=== PATIENT | female | born 1990 | race American Indian/Alaskan Native ===

== ENCOUNTER 2018-12-31 20:13 | Inpatient (IN) | payer MEDICAID ==
[2018-12-31] MEDS ORDERED: LACTATED RINGERS 1,000 ML IV SCH (23:45)
[2018-12-31 23:49] LABS: Hematocrit 36.1 % (30.3-42.9); Hemoglobin 11.8 gm/dl (10.1-14.3); Mean Corpuscular HGB Conc 33 % (30-34); Mean Corpuscular Volume 85 fl (79-97); Platelet Count 358 K/mm3 (140-440); Red Blood Count 4.23 M/mm3 (3.65-5.03)
[2018-12-31 23:51] LABS: Red Cell Distribution Width 21.4 % (13.2-15.2)
[2019-01-01] MEDS ORDERED: NUBAIN IV PRN (01:11)
[2019-01-01] MEDS ORDERED: CERVIDIL VG ONE (01:11)
[2019-01-01] MEDS ORDERED: SUBLIMAZE IV PRN (01:11)
[2019-01-01] MEDS ORDERED: MINERAL OIL PO PRN (01:11)
[2019-01-01] MEDS ORDERED: STADOL IV PRN (01:11)
[2019-01-01] MEDS ORDERED: NARCAN 0.4 MG/1 ML IV PRN (01:11)
[2019-01-01] MEDS ORDERED: XYLOCAINE 2% INFILTRATI ONE (01:11)
[2019-01-01] MEDS ORDERED: PHENERGAN PO PRN (01:11)
[2019-01-01] MEDS ORDERED: BRETHINE IVP PRN (01:11)
[2019-01-01] MEDS ORDERED: ZOFRAN IV PRN (01:11)
[2019-01-01] MEDS ORDERED: BRETHINE SUB-Q PRN (01:11)
[2019-01-01] MEDS ORDERED: PITOCin/NS 30 UNIT/500ML 30 UNITS/500 ML BAG IV SCH ×3 (02:00→14:00)
--- NOTE | 2019-01-01 02:29 | History and Physical Report ---
History of Present Illness Date of examination: 01/01/19 Date of admission: 12/31/18 20:13 Chief complaint: Here for my induction History of present illness: The patient is a 28 yo at 39.1 wks EGA. She presents for induction of labor for morbid obesity. She reports positive movement, occasional contractions, and denies leakage of fluid or vaginal bleeding. She denies any current HSV lesions and has taken Valtrex suppression since 35 weeks. She has re ceived care with [facility]. Her course has been complicated by HSV, UTI treated, obesity, glucose intolerance, and thrombocytosis. She is GBS negative. 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 surgery (LEEP) [employer] History: abnormal PAP smear (LSIL), chlamydia, herpes Family/Genetic History: diabetes, hypertension Social history: no significant social history - Obstetrical History Expected Date of Delivery: 01/07/19 Actual Gestation: 39 Week(s) 1 Day(s) : 2 Para: 1 Hx # Term Pregnancies: 1 Number of Pregnancies: 0 Spontaneous Abortions: 0 Induced : 0 Number of Living Children: 1 Medications and Allergies Allergies Allergy/AdvReac Type Severity Reaction Status Date / Time No Known Allergies Allergy Unverified 05/14/18 21:51 Home Medications Medication Instructions Recorded Confirmed Last Taken Type Pnv No.118/Iron Fumarate/FA 1 each PO QDAY #30 tab.chew 05/15/18 Unknown Rx [ 19 Chewable] Active Meds: Active Medications Butorphanol Tartrate (Stadol) 1 mg IV Q2H PRN PRN Reason: Pain, Moderate (4-6) Ephedrine Sulfate (Ephedrine Sulfate) 10 mg IV Q2M PRN PRN Reason: Hypotension Fentanyl (Sublimaze) 100 mcg IV Q2H PRN PRN Reason: Labor Pain Lactated Ringer's (Lactated Ringers) 1,000 mls @ 125 mls/hr IV DIRECT ROMAIN Oxytocin/Sodium Chloride (Pitocin/Ns 20 Unit/1000ml Drip) 20 units in 1,000 mls @ 125 mls/hr IV DIRECT ROMAIN Oxytocin/Sodium Chloride (Pitocin/Ns 30 Unit/500ml) 30 units in 500 mls @ 1 mls/hr IV TITR ROMAIN; Protocol Oxytocin/Sodium Chloride (Pitocin/Ns 30 Unit/500ml) 30 units in 500 mls @ 2 mls/hr IV TITR ROMAIN; Protocol Lactated Ringer's (Lactated Ringers) 1,000 mls @ 125 mls/hr IV DIRECT ROMAIN Mineral Oil (Mineral Oil) 30 ml PO QHS PRN PRN Reason: Constipation Nalbuphine HCl (Nubain) 10 mg IV Q2H PRN PRN Reason: Pain, Moderate (4-6) Naloxone HCl (Narcan 0.4 Mg/1 Ml) 0.1 mg IV Q2MIN PRN PRN Reason: Res Rate </= 8 or 02 SAT < 92% Ondansetron HCl (Zofran) 4 mg IV Q8H PRN PRN Reason: Nausea And Vomiting Promethazine HCl (Phenergan) 25 mg PO Q6H PRN PRN Reason: Nausea And Vomiting Terbutaline Sulfate (Brethine) 0.25 mg SUB-Q ONCE PRN PRN Reason: Hyperstimulation/Hypertonicity Terbutaline Sulfate (Brethine) 0.25 mg IVP ONCE PRN PRN Reason: Hyperstimulation/Hypertonicity Review of Systems ROS unobtainable: due to endotracheal tube All systems: negative Cardiovascular: no chest pain, no shortness of breath Gastrointestinal: no nausea Genitourinary: no vaginal bleeding, no vaginal discharge, no leakage of fluid, no genital sores - Vital Signs Vital signs: Vital Signs Pulse BP 117 H 138/63 12/31/18 20:31 12/31/18 20:31 Temp Pulse Resp BP Pulse Ox 117 H 138/63 12/31/18 20:31 12/31/18 20:31 - Physical Exam Breasts: Positive: deferred Lungs: Positive: Normal air movement Abdomen: Positive: normal appearance (gravid), soft. Negative: distention, tenderness, guarding Uterus: Positive: enlarged (gravid), normal contour Extremities: Positive: normal - Obstetrical FHR: category 1 Uterine Contraction Monitor Mode: External Cervical Dilatation: 0 Cervical Effacement Percentage: 0 station: high Uterine Contraction Pattern: Irregular Results Result Diagrams: 12/31/18 22:00 Abnormal lab results 12/31/18 Range/Units 22:00 RDW 21.4 H (13.2-15.2) % All other labs normal. Assessment and Plan 28 yo at 39.1 wks EGA Morbid obesity- initiate IOL Unfavorable cervix- Cervidil HSV, no active lesions GBS negative Membranes intact Pain relief as requested Anticipate
--- NOTE | 2019-01-01 08:17 | Progress Note ---
Assessment and Plan A/P IUP 39 weeks IOl for morbid obesity GBS neg cervidil and reassess expect vaginal delivery Subjective - Subjective Date of service: 01/01/19 Principal diagnosis: IOL for obesity Patient reports: movement normal, no new complaints, no loss of fluid, no vaginal bleeding, no contractions Objective - Vital Signs Vital Signs: Vital Signs - 12hr 12/31/18 01/01/19 01/01/19 20:31 07:15 07:38 Temperature 98.5 F Pulse Rate 117 H 99 H Blood Pressure 138/63 124/68 - Exam Breasts: normal Cardiovascular: Regular rate, Normal S1 Lungs: Clear to auscultation, Normal air movement Abdomen: Present: normal appearance, soft, normal bowel sounds. Absent: distention, tenderness, guarding Vulva: both: normal Uterus: Present: normal, firm, fundal height above umbilicus. Absent: bogginess, tenderness FHR: category 1 Cervical Dilatation: 0 - Labs Labs: Abnormal Labs 12/31/18 22:00 RDW 21.4 H Laboratory Results - last 24 hr 12/31/18 12/31/18 22:00 22:00 WBC 7.3 RBC 4.23 Hgb 11.8 Hct 36.1 MCV 85 MCH 28 MCHC 33 RDW 21.4 H Plt Count 358 Blood Type O POSITIVE Antibody Screen Negative
[2019-01-01] MEDS ORDERED: NARCAN 2 MG/2 ML IV PRN (19:53)
--- NOTE | 2019-01-01 19:53 | Anesthesia Consultation ---
Anesthesia Consult and Med Hx Date of service: 01/01/19 - Airway Anesthetic Teeth Evaluation: Good ROM Head & Neck: Adequate Mental/Hyoid Distance: Adequate Mallampati Class: Class II Intubation Access Assessment: Probably Good - Pulmonary Exam CTA: Yes - Cardiac Exam Cardiac Exam: RRR - Pre-Operative Health Status ASA Pre-Surgery Classification: ASA2 Proposed Anesthetic Plan: Epidural - Pulmonary Hx Asthma: No COPD: No Hx Pneumonia: No - Cardiovascular System Hx Hypertension: No - Central Nervous System Hx Seizures: No Hx Psychiatric Problems: No - Endocrine Hx Renal Disease: No Hx End Stage Renal Disease: No Hx Hypothyroidism: No Hx Hyperthyroidism: No - Hematic Hx Anemia: Yes (This , receiving iron infusions) Hx Sickle Cell Disease: No
[2019-01-01] MEDS: fentaNYL-BUPIV 2 MCG/ML-0.125% 200 MCG/100 ML BAG EPIDURAL SCH (20:58)
[2019-01-01] MEDS: LACTATED RINGERS 1,000 ML IV SCH (23:08)
[2019-01-02] MEDS: LACTATED RINGERS 1,000 ML IV SCH (06:21)
--- NOTE | 2019-01-02 08:52 | Progress Note ---
Assessment and Plan A/P IUP 39+ weeks IOl for morbid obesity GBS neg cervidil on pitocin expect vaginal delivery Subjective - Subjective Date of service: 01/02/19 Principal diagnosis: IOL for obesity Patient reports: movement normal, no new complaints, no loss of fluid, no vaginal bleeding, no contractions Objective - Vital Signs Vital Signs: Vital Signs - 12hr 01/01/19 01/01/19 01/01/19 21:00 21:29 21:59 Pulse Rate 99 H 100 H 94 H Blood Pressure 121/60 120/62 120/57 01/01/19 01/01/19 01/01/19 22:30 23:00 23:29 Pulse Rate 95 H 93 H 106 H Blood Pressure 116/56 93/52 112/56 01/01/19 01/02/19 01/02/19 23:59 00:29 00:59 Pulse Rate 105 H 110 H 115 H Blood Pressure 114/53 114/53 119/59 01/02/19 01/02/19 01/02/19 01:29 01:59 02:29 Pulse Rate 123 H 117 H 101 H Blood Pressure 116/56 109/55 117/56 01/02/19 01/02/19 01/02/19 02:59 03:30 03:59 Pulse Rate 114 H 106 H 100 H Blood Pressure 105/57 108/52 116/62 01/02/19 01/02/19 01/02/19 04:30 05:00 05:29 Pulse Rate 97 H 94 H 88 Blood Pressure 100/55 106/52 102/57 01/02/19 01/02/19 01/02/19 05:59 06:29 07:01 Pulse Rate 105 H 107 H 96 H Blood Pressure 128/80 129/71 121/77 01/02/19 01/02/19 01/02/19 07:30 07:59 08:29 Pulse Rate 101 H 93 H 96 H Blood Pressure 100/54 123/81 122/63 - Exam Breasts: normal Cardiovascular: Regular rate, Normal S1 Lungs: Clear to auscultation, Normal air movement Abdomen: Present: normal appearance, soft, normal bowel sounds. Absent: distention, tenderness, guarding Vulva: both: normal Uterus: Present: normal, firm, fundal height below umbilicus. Absent: bogginess, tenderness FHR: auscultation normal Cervical Dilatation: 3 Uterine Contraction Pattern: Regular Uterine Tone Measurement Phase: Contraction Uterine Contraction Intensity: Moderate Extremities: normal Deep Tendon Reflex Grade: Normal +2 - Labs Labs: Abnormal Labs 12/31/18 22:00 RDW 21.4 H Laboratory Results - last 24 hr 12/31/18 22:00 RPR Nonreactive
[2019-01-02] MEDS: fentaNYL-BUPIV 2 MCG/ML-0.125% 200 MCG/100 ML BAG EPIDURAL SCH (12:21)
[2019-01-02] MEDS ORDERED: MARCAINE 0.25% INFILTRATI ONE (12:34)
[2019-01-02] MEDS ORDERED: XYLOCAINE 2% INFILTRATI ONE (14:19)
[2019-01-02] MEDS: PITOCin/NS 20 UNIT/1000ML DRIP 20 UNITS/1,000 ML BAG IV SCH ×2 (14:20→15:30)
[2019-01-02] MEDS ORDERED: METHERGINE IM ONE (14:23)
[2019-01-02] MEDS ORDERED: CYTOTEC ONE (14:29)
[2019-01-02] MEDS ORDERED: TORADOL IV PRN (15:35)
[2019-01-02] MEDS ORDERED: TYLENOL PO PRN (15:35)
[2019-01-02] MEDS ORDERED: LANSINOH TP PRN (15:35)
[2019-01-02] MEDS ORDERED: PERCOCET 5/325 PO PRN (15:35)
[2019-01-02] MEDS ORDERED: PHENERGAN PO PRN (15:35)
[2019-01-02] MEDS ORDERED: PHENERGAN PR PRN (15:35)
[2019-01-02] MEDS ORDERED: CYTOTEC PR ONE (15:35)
[2019-01-02] MEDS ORDERED: TUCKS PAD TP PRN (15:35)
[2019-01-02] MEDS ORDERED: DULCOLAX PR PRN (15:35)
[2019-01-02] MEDS ORDERED: BENADRYL PO PRN (15:35)
[2019-01-02] MEDS ORDERED: NORCO 5/325 PO PRN (15:35)
[2019-01-02] MEDS ORDERED: ZOFRAN IV PRN (15:35)
[2019-01-02] MEDS ORDERED: MILK OF MAGNESIA PO PRN (15:35)
--- NOTE | 2019-01-02 15:45 | Procedure Note ---
OB Delivery Note - Delivery Date of Delivery: 01/02/19 Surgeon: SHERRI HOLLY Estimated blood loss: 500cc - Vaginal Delivery presentation: vertex Delivery position: OA Delivery induction: cervidil Delivery augmentation: rupture of membranes, pitocin Delivery monitor: external FHT, external uterine Route of delivery: Delivery placenta: spontaneous Delivery cord: 3 umbilical vessels Episiotomy: none Delivery laceration: 1st degree Delivery repair: vicryl Anesthesia: epidural Delivery comments: Patient was noted to be c/c/ and and commeced to pushing a viable infant male Apgars 8 and 9 at 1413. Baby delivered head and shoulders with one push. The cord was clamped and cut and placed on [facility] abdomen. The placenta delivered at intact with 3 vessel cord 1418. Weight of baby is 3088 g. No lacerations noted. EBL 500 cc. - A at 1 minute: 8 at 5 minutes: 9 Gender: Male (3088g)
[2019-01-02] MEDS ORDERED: SODIUM CHLORIDE FLUSH SYRINGE 10 ML IV NR (16:00)
[2019-01-02] MEDS ORDERED: PITOCin/NS 20 UNIT/1000ML DRIP 20 UNITS/1,000 ML BAG IV SCH (16:00)
[2019-01-02] MEDS ORDERED: SENOKOT S PO SCH (16:00)
[2019-01-02] MEDS: IBUPROFEN PO SCH ×2 (19:28→23:50)
[2019-01-02] MEDS: METHERGINE PO SCH (23:49)
[2019-01-02] MEDS: COLACE PO SCH (23:50)
[2019-01-03 05:50] LABS: Hemoglobin 9.9 gm/dl (10.1-14.3)
[2019-01-03] MEDS: IBUPROFEN PO SCH ×3 (06:12→17:40)
[2019-01-03] MEDS: METHERGINE PO SCH ×3 (07:30→22:00)
--- NOTE | 2019-01-03 09:43 | Progress Note ---
Assessment and Plan A/P PPD1 vss hgb 11.8-9.9 on iron O+ no rhogam indicated consider d/c home tomorrow Subjective - Subjective Date of service: 01/03/19 Principal diagnosis: IOL for obesity Patient reports: appetite normal, voiding normally, pain well controlled, flatus, ambulating normally [place]: doing well Objective - Vital Signs Latest vital signs: Vital Signs Temp Pulse Resp BP BP 01/03/19 07:12 18 01/03/19 06:12 18 01/03/19 00:00 98 F 67 18 115/72 01/02/19 23:50 18 01/02/19 20:00 98.4 F 66 16 101/78 01/02/19 15:36 90 135/64 01/02/19 15:21 99 H 128/86 01/02/19 14:51 93 H 95/61 01/02/19 14:38 98.3 F 01/02/19 14:36 100 H 104/53 01/02/19 14:29 96 H 125/66 01/02/19 14:15 112 H 122/66 01/02/19 13:59 110 H 136/75 01/02/19 13:29 102 H 123/65 01/02/19 12:59 94 H 115/73 01/02/19 12:29 98 H 109/53 01/02/19 11:59 95 H 122/67 01/02/19 11:39 98.1 F 01/02/19 11:30 104 H 135/72 01/02/19 10:59 90 132/72 01/02/19 10:29 93 H 129/76 01/02/19 09:59 107 H 127/84 Intake and Output 01/02/19 01/03/19 01/03/19 23:59 07:59 15:59 Intake Total 200 Balance 200 Intake: Oral 200 Other: Total, Intake Amount 200 # Bowel Movements 1 - Exam Breasts: Present: normal Cardiovascular: Present: Regular rate, Normal S1 Lungs: Present: Clear to auscultation, Normal air movement Abdomen: Present: normal appearance, soft, normal bowel sounds. Absent: distention, tenderness, guarding Uterus: Present: normal, firm, fundal height below umbilicus. Absent: bogginess, tenderness Extremities: Present: normal Deep Tendon Reflex Grade: Normal +2 - Labs Labs: Abnormal lab results 01/03/19 Range/Units 05:17 Hgb 9.9 L (10.1-14.3) gm/dl Hct 30.0 L D (30.3-42.9) %
[2019-01-03] MEDS: PRENATAL VITAMIN PO SCH (12:50)
[2019-01-03] MEDS: COLACE PO SCH ×2 (12:50→22:00)
[2019-01-03] MEDS ORDERED: BOOSTRIX IM ONE (15:35)
[2019-01-03] MEDS ORDERED: M-M-R II VACCINE SUB-Q ONE (15:35)
--- NOTE | 2019-01-03 21:08 | Discharge Summary ---
Providers - Providers Date of Admission: 12/31/18 20:13 Date of discharge: 01/04/19 Attending physician: REED ESPOSITO Primary care physician: REED ESPOSITO Hospitalization Reason for admission: active labor Delivery: Episiotomy: none Laceration: none Incision: normal, dry, intact Other procedures: none complications: none Discharge diagnosis: IUP at term delivered baby: male Hospital course: unremarkable hospital course Condition at discharge: Good Disposition: DC-01 TO HOME OR SELFCARE Plan - Discharge Medications Prescriptions: Ferrous Sulfate [Feosol 325 MG tab] 325 mg PO BID #30 tablet Ibuprofen [Motrin] 600 mg PO Q8H PRN #30 tablet PRN Reason: Pain oxyCODONE /ACETAMINOPHEN [Percocet 5/325] 1 tab PO Q6HR PRN #20 tablet PRN Reason: Pain - Provider Discharge Summary Activity: routine, no sex for 6 weeks, no strenuous exercise Diet: routine Instructions: routine Additional instructions: [] Smoking cessation referral if applicable(refer to patient education folder for contact #) [] Refer to [facility] Booklet Call your doctor immediately for: * Fever > 100.5 * Heavy vaginal bleeding ( >1 pad per hour) * Severe persistent headache * Shortness of breath * Reddened, hot, painful area to leg or breast * Drainage or odor from incision. * Keep incision clean and dry at all times and follow doctor's instructions regarding bathing/showering - Follow up plan Follow up: REED ESPOSITO MD [Primary Care Provider] - 02/01/19
[2019-01-04] MEDS ORDERED: BOOSTRIX IM ONE (06:00)
[2019-01-04] MEDS: METHERGINE PO SCH ×2 (06:47→13:07)
[2019-01-04] MEDS: IBUPROFEN PO SCH ×4 (06:48→18:35)
[2019-01-04] MEDS: PRENATAL VITAMIN PO SCH (10:20)
[2019-01-04] MEDS: COLACE PO SCH (10:20)
[2019-01-04 17:14] VITALS: BP 129/72
== END 2019-01-04 21:25 | disposition home or self-care (01) | DRG 775 ==
LOC: APU 20:13 → LD 20:19 → OB 01-02 16:56
PROVIDERS: ADMIT Obstetrics & Gynecology; ATTEND Obstetrics & Gynecology
PROC: 10E0XZZ Delivery of Products of Conception, External Approach (ICD-10-PCS; principal; 2019-01-02)
PROC: 3E0P7VZ Introduction of Hormone into Female Reproductive, Via Natural or Artificial Opening (ICD-10-PCS; 2019-01-02)
PROC: 3E0R3BZ Introduction of Anesthetic Agent into Spinal Canal, Percutaneous Approach (ICD-10-PCS; 2019-01-02)
PROC: 00HU33Z Insertion of Infusion Device into Spinal Canal, Percutaneous Approach (ICD-10-PCS; 2019-01-02)
PROC: 3E0234Z Introduction of Serum, Toxoid and Vaccine into Muscle, Percutaneous Approach (ICD-10-PCS; 2019-01-03)
DX: O99.214 Obesity complicating childbirth (principal); E66.01 Morbid (severe) obesity due to excess calories; O70.0 First degree perineal laceration during delivery; Z37.0 Single live birth; Z3A.39 39 weeks gestation of pregnancy; Z23 Encounter for immunization; Z83.3 Family history of diabetes mellitus; Z82.49 Family history of ischemic heart disease and other diseases of the circulatory system
CPT/HCPCS: 36415; 59200; 85014; 85018; 85027; 86592; 86850; 86900; 86901; 90471; 90715; G0378; J0595; J2210; J2590; J7120

== ENCOUNTER 2019-02-17 05:50 | Day surgery (SDC) | payer MEDICAID ==
[~2019-02-17 05:50] MED LIST: BUPIVACAINE/PF (0.5%) 5 MG/1 ML 30 ML VIAL INFILTRATI ONE
[2019-02-17] MEDS ORDERED: LIDOCAINE MPF (2%) 20 MG/1 ML VIAL 5 ML ONE (07:13)
[2019-02-17] MEDS ORDERED: PROPOFOL 200 MG/20 ML VIAL IV ONE (07:13)
[2019-02-17] MEDS ORDERED: HYDROmorphone 1 MG/1 ML INJ IV PRN (07:13)
[2019-02-17] MEDS ORDERED: HYDROmorphone 1 MG/1 ML INJ ONE (07:13)
--- NOTE | 2019-02-17 07:14 | Anesthesia Consultation ---
Anesthesia Consult and Med Hx Date of service: 02/17/19 - Airway Anesthetic Teeth Evaluation: Good ROM Head & Neck: Adequate Mental/Hyoid Distance: Adequate Mallampati Class: Class III Intubation Access Assessment: Possibly Difficult - Pulmonary Exam CTA: Yes - Cardiac Exam Cardiac Exam: RRR - Pre-Operative Health Status ASA Pre-Surgery Classification: ASA2 Proposed Anesthetic Plan: General - Pulmonary Hx Smoking: No Hx Respiratory Symptoms: No - Cardiovascular System Hx Hypertension: No Hx Heart Attack/AMI: No Hx Percutaneous Transluminal Coronary Angioplasty (PTCA): No - Central Nervous System Hx Seizures: No CVA: No Hx Psychiatric Problems: No - Gastrointestinal Hx Gastroesophageal Reflux Disease: No - Endocrine Hx Renal Disease: No Hx Liver Disease: No Hx Insulin Dependent Diabetes: No Hx Non-Insulin Dependent Diabetes: No Hx Thyroid Disease: No - Hematic Hx Anemia: Yes (during recent ) - Other Systems Hx Obesity: Yes (BMI 44) - Additional Comments Anesthesia Medical History Comments: No hx anesthetic complications.
--- NOTE | 2019-02-17 07:14 | Anesthesia Day of Surgery ---
Anesthesia Day of Surgery - Day of Surgery Patient Examined: Yes Patient H&P Reviewed: Yes Patient is NPO: Yes
[2019-02-17] MEDS ORDERED: BUPIVACAINE/PF (0.5%) 5 MG/1 ML 30 ML VIAL INFILTRATI ONE ×3 (07:15→08:14)
[2019-02-17] MEDS ORDERED: ROCURONIUM 50 MG/5 ML INJ IV ONE (07:16)
--- NOTE | 2019-02-17 07:30 | Short Stay Summary ---
Short Stay Documentation Date of service: 02/17/19 Narrative H&P: 28y/o with undesired fertility. The patient is aware of other contractive options. She has elected for permanent sterilization. - History Principal diagnosis: Undesired fertility Past Medical History: No medical history Past Surgical History: Other (LEEP) Social history: single - Allergies and Medications Current Medications: Allergies No Known Allergies Allergy (Unverified 05/14/18 21:51) Home Medications Medication Instructions Recorded Confirmed Last Taken Type No Known Home Medications [No 02/15/19 02/15/19 Unknown History Reported Home Medications] Active Medications Celecoxib (Celebrex) 200 mg PO PREOP NR Stop: 02/17/19 18:00 Gabapentin (Neurontin) 300 mg PO PREOP NR Hydromorphone HCl (Dilaudid) 0.5 mg IV Q10MIN PRN PRN Reason: Pain , Severe (7-10) Lactated Ringer's (Lactated Ringers) 1,000 mls @ 100 mls/hr IV DIRECT ROMAIN Midazolam HCl (Versed) 2 mg IV PREOP NR Stop: 02/17/19 23:59 Scopolamine (Transderm-Scop) 1 each TD PREOP NR - Physical exam General appearance: no acute distress Integumentary: no rash HEENT: Atraumatic Lungs: Clear to auscultation Breasts: deferred Heart: Regular rate Gastrointestinal: normal Female Genitourinary: deferred Rectal Exam: deferred Extremities: no ischemia Neurological: Normal gait - Brief post op/procedure progress note Date of procedure: 02/17/19 Pre-op diagnosis: Undesired fertility Post-op diagnosis: same Procedure: laparoscopic bilateral tubal ligation with filshie clips Anesthesia: SHANTEL Surgeon: REED ESPOSITO Estimated blood loss: none Pathology: none Condition: stable - Hospital course Hospital course: She presented the day of surgery underwent a bilateral tubal ligation. Please see operative note for details of surgery. Postoperative course was uneventful. - Disposition Condition at discharge: Good Disposition: DC-01 TO HOME OR SELFCARE Short Stay Discharge Plan Activity: other (pelvic rest for 1 week) Diet: regular Additional Instructions: Follow-up is not required Follow-up as needed Prescriptions: Ibuprofen [Motrin] 800 mg PO Q8HR PRN #60 tablet PRN Reason: Pain, Mild (1-3) HYDROcodone/APAP 5-325 [[place] 5/325] 1 each PO Q6HR PRN #20 tablet PRN Reason: Pain
[2019-02-17] MEDS ORDERED: SCOPOLAMINE TRANSDERMAL PATCH 72 HR TD NR (08:00)
[2019-02-17] MEDS ORDERED: GABAPENTIN 300 MG CAP PO NR (08:00)
[2019-02-17] MEDS ORDERED: MIDAZOLAM 2 MG/2 ML INJ IV NR (08:00)
[2019-02-17] MEDS ORDERED: CELECOXIB 200 MG CAP PO NR (08:00)
[2019-02-17] MEDS ORDERED: LACTATED RINGERS 1,000 ML IV SCH (08:00)
[2019-02-17] MEDS ORDERED: SODIUM CHLORIDE 0.9% IRR 1,000 ML BOTTLE IR ONE (08:14)
[2019-02-17] MEDS ORDERED: SUGAMMADEX SODIUM 200 MG/2 ML VIAL IV ONE (08:38)
[2019-02-17] MEDS ORDERED: ONDANSETRON 4 MG/2 ML INJ ONE (08:41)
--- NOTE | 2019-02-17 08:41 | Operative Report ---
Operative Report Operative Report: Date of surgery: 02/17/2019 Preoperative diagnosis: Unwanted fertility Postoperative diagnosis: Same as above Procedure: Laparoscopic bilateral tubal ligation with Filshie clips Surgeon: Haley Senior M.D. Anesthesia: General endotracheal anesthesia Estimated blood loss: Minimal Findings: Normal uterus tubes and ovaries Indication: 28-year-old with undesired fertility. The patient is elected for permanent sterilization. Procedure: The patient was taken to the operating room and given general endotracheal anesthesia without complication. The patient is prepped and draped in a normal sterile fashion. A bivalve speculum was placed in the patient's vagina and a single-tooth tenaculum was placed on the anterior lip of the cervix .A uterine acorn manipulator was placed, and the bivalve speculum was then removed. Attention was then turned to the patient's abdomen where a 5 mm i nfraumbilical skin incision was then made. A Veress needle was placed and peritoneal entry was verified water-filled syringe. Insufflation of the peritoneal cavity was performed with CO2 gas. A 5 mm trocar was placed and the laparoscope was then inserted. The patient was then placed in Trendelenburg. A 7 mm suprapubic skin incision was then made. Under direct visualization a 7 mm trocar was then placed. General survey of the patient's abdomen revealed normal uterus tubes and ovaries. The fallopian tube was then followed out to the fimbriated end. A Filshie clip was placed, on the ampullary portion of the tube. An additional Filshie clip was placed on the fallopian tube.This was performed on the contralateral side as well. The 7 mm trocar was then removed. The pneumoperitoneum was then released. The 5 mm trocar laparoscope was then removed. The skin incisions were then closed with 4-0 Monocryl. The incisions were injected with quarter percent Marcaine. Dressings were applied to the incision. The vaginal instruments were then removed atraumatically. Then successfully extubated and taken to the recovery room. All sponge laps and needle counts were correct x2.
[2019-02-17] MEDS ORDERED: KETOROLAC 30 MG/1 ML INJ ONE (08:43)
[2019-02-17] MEDS ORDERED: HYDROcodone/ACETAMINOPHEN 5-325 MG TAB PO PRN (09:30)
[2019-02-17 10:07] VITALS: BP 130/76
--- NOTE | 2019-02-17 10:19 | Post Anesthesia Evaluation ---
- Post Anesthesia Evaluation Patient Participated: Yes Airway Patent: Yes Stable Respiratory Function: Yes Nausea/Vomiting: No Temp > 96.8F: Yes Pain Manageable: Yes Adequeate Hydration: Yes Anesthesia Complications: No
== END 2019-02-17 05:51 | disposition home or self-care (01) ==
LOC: OR 05:50
PROVIDERS: ATTEND Obstetrics & Gynecology
DX: Z31.41 Encounter for fertility testing (principal); E66.9 Obesity, unspecified; Z79.899 Other long term (current) drug therapy; Z68.41 Body mass index [BMI] 40.0-44.9, adult; Z83.3 Family history of diabetes mellitus; Z80.8 Family history of malignant neoplasm of other organs or systems; Z98.890 Other specified postprocedural states; Z82.49 Family history of ischemic heart disease and other diseases of the circulatory system; Z86.2 Personal history of diseases of the blood and blood-forming organs and certain disorders involving the immune mechanism
CPT/HCPCS: 58671; 81025; J1170; J1885; J2250; J2405; J2704; J7120